=== PATIENT | male | born 1990 | race Caucasian/White ===

== ENCOUNTER 2018-10-06 16:37 | Emergency (ER) | payer MEDICAID, OTHER ==
[2018-10-06] MEDS: morphine 4 MG/ML VIAL IM (17:36)
[2018-10-06] MEDS: ONDANSETRON (ODT) 4 MG TAB ODT (17:37)
[2018-10-06] MEDS: ONDANSETRON 4 MG INJ IV (17:51)
[2018-10-06] MEDS: morphine 4 MG/ML VIAL IV (17:51)
[2018-10-06] MEDS: IOHEXOL 300MG/ML 150 ML BTL (18:27)
[2018-10-06] MEDS: SOD CHLORIDE 0.9% 100 ML (18:27)
[2018-10-06 18:29] LABS: ADD MAN DIFF? NO
[2018-10-06 18:32] LABS: BASOPHILS % 0.3 % (0.0-2.0); EOSINOPHILS # 0.1 10^3/ul (0.0-0.5); EOSINOPHILS % 1.4 % (0.0-7.0); HEMATOCRIT 45.7 % (42.0-52.0); HEMOGLOBIN 15.4 g/dl (14.0-18.0); LYMPHOCYTES # 2.5 10^3/ul (0.8-2.9); MEAN CORPUSCULAR HEMOGLOBIN 29.3 pg (29.0-33.0); MEAN CORPUSCULAR HGB CONC 33.7 g/dl (32.0-37.0); MEAN PLATELET VOLUME 10.4 fl (7.4-10.4); MONOCYTE # 0.7 10^3/ul (0.3-0.9); MONOCYTES % 6.9 % (0.0-11.0); NEUTROPHIL # 6.7 10^3/ul (1.6-7.5); NEUTROPHILS % 65.9 % (39.0-77.0); PLATELET COUNT 276 10^3/UL (140-415); RED BLOOD COUNT 5.25 10^6/ul (4.70-6.10)
[2018-10-06 18:32] LABS: WHITE BLOOD COUNT 10.2 10^3/ul (4.8-10.8)
[2018-10-06] MEDS ORDERED: ONDANSETRON 4 MG INJ IV (18:45)
[2018-10-06 18:51] LABS: INR 0.95; PARTIAL THROMBOPLASTIN TIME 27.5 Sec (23.0-35.0); PROTIME 12.8 Sec (11.9-14.9)
[2018-10-06 18:53] LABS: ALANINE AMINOTRANSFERASE 60 IU/L (13-69); ALBUMIN 4.8 g/dl (3.3-4.9); ALBUMIN/GLOBULIN RATIO 1.26; ALKALINE PHOSPHATASE 103 IU/L (42-121); ANION GAP 10 (5-13); ASPARTATE AMINO TRANSFERASE 41 IU/L (15-46); BILIRUBIN,INDIRECT 0.4 mg/dl (0-1.1); BILIRUBIN,TOTAL 0.4 mg/dl (0.2-1.3); BLOOD UREA NITROGEN 15 mg/dl (7-20); CARBON DIOXIDE 27 mmol/L (21-31); CHLORIDE 104 mmol/L (97-110); CREATININE 0.71 mg/dl (0.61-1.24); Estimated GFR > 60 mL/min (>60); GLUCOSE 98 mg/dl (70-220); POTASSIUM 4.3 mmol/L (3.5-5.1); SODIUM 141 mmol/L (135-144); TOTAL PROTEIN 8.6 g/dl (6.1-8.1)
[2018-10-06] MEDS: KETOROLAC 30 MG INJ IV (20:04)
[2018-10-06] MEDS: HYDROmorphONE 1 MG/ML SYG IV (20:05)
== END 2018-10-06 20:41 | disposition home or self-care (01) ==
LOC: E/R 16:37
DX: S29.8XXA Other specified injuries of thorax, initial encounter (principal); S39.81XA Other specified injuries of abdomen, initial encounter; R07.9 Chest pain, unspecified; W01.198A Fall on same level from slipping, tripping and stumbling with subsequent striking against other object, initial encounter; Y92.9 Unspecified place or not applicable
CPT/HCPCS: 71250; 74177; 80053; 85025; 85610; 85730; 96372; 96374; 96375; 99285-25